=== PATIENT | female | born 1945 | race Caucasian/White ===

== ENCOUNTER 2023-06-20 11:59 | Outpatient (CLI) | payer MEDICARE, SELFPAY ==
--- NOTE | ~2023-06-20 | DEXA_ITS ---
? Bone Density Report? Name:? VIKTOR SNOW Patient ID:??? [id number] Age:? 77 Sex:? Female Ethnicity:? White Date of : 1945 Indication: postmenopausal; screening for osteoporosis; height loss; Referring Provider: Marion, Afshin Miranda Study: Bone densitometry was performed. Exam Date: June 20, 2023 Accession number: [id number] Bone Density: Region? BMD??? T-score? Z-score?? Classification AP Spine(L2, L3, L4)? 1.126??? 0.4?3.1? Normal Femoral Neck (Left)? 0.653?? -1.8? 0.5? Osteopenia Total Hip (Left)? 0.821?? -1.0? 1.0? Normal Femoral Neck (Right)? 0.631?? -2.0? 0.2? Osteopenia Total Hip (Right)? 0.742?? -1.6? 0.3? Osteopenia Femoral Neck Mean? 0.642?? -1.9? 0.3? Osteopenia Total Hip Mean? 0.782?? -1.3? 0.6? Osteopenia World Health Organization criteria for BMD impression classify patients as: Normal (T-score at or above -1.0), Osteopenia (T-score between -1.0 and -2.5), or Osteoporosis (T-score at or below -2.5). 10-year Fracture Risk(1): Major Osteoporotic Fracture? 14% Hip Fracture? 5.9% Reported Risk Factors: [place] (), Neck BMD=0.631, BMI=21.8, smoking (1) FRAX? Version 3.08. Fracture probability calculated for an untreated patient. Fracture probability may be lower if the patient has received treatment. Clinical Information Provided by Patient: Smokes Patient maximum height was 60 Menopause Age: 50 No regular weight bearing exercise Drinks caffeinated beverages Onset of menses at age 12 Number of children 2 Impression: The patient has low bone mass, based on the Right Femoral Neck T- score. The patient has risk factors, including: smoking. Discussion: BONE DENSITY IS LOW AT ONE OR MORE SKELETAL SITES. This patient's lowest T-score is low at one or more skeletal sites.? It meets the World Health Organization's (WHO) criteria for ?low bone mass?? (T-score between -1.0 and -2.5).? The patient's 10-year risk of fracture as calculated by FRAX is less than the threshold where pharmacological therapy is recommended by the National Osteoporosis Foundation (NOF).? However, all treatment decisions require clinical judgment and consideration of individual patient factors, including patient preferences, comorbidities, previous drug use, risk factors not captured in the FRAX model (e.g., frailty, falls, vitamin D deficiency, increased bone turnover, interval significant decline in bone density) and possible under or overestimation of fracture risk by FRAX. The patient should follow a healthful lifestyle (good nutrition with adequate calcium and vitamin D, and appropriate weight-bearing exercise). Follow-Up: Consider repeating this study in 2 to 3 years to reassess this patient's status, or sooner if there is some new clinical indication. Reported by: Dr. Xavier Love on 06/21/2023 2:23:00 PM. LALA
== END 2023-06-20 12:00 | disposition home or self-care (01) ==
LOC: CHSIMG 12:06
PROVIDERS: PCP Physician Assistant; Visit Provider Physician Assistant
DX: Z78.0 Asymptomatic menopausal state (principal); M85.89 Other specified disorders of bone density and structure, multiple sites
CPT/HCPCS: 77080

== ENCOUNTER 2023-10-21 12:15 | Outpatient (CLI) | payer MEDICARE, SELFPAY ==
[2023-10-21 12:39] LABS: Hematocrit 28.7 % (35.0-42.0); Hemoglobin 9.5 g/dL (11.7-13.8); Mean Corpuscular HGB Conc 33.1 g/dL (32-36); Mean Corpuscular Hemoglobin 28.7 pg (27.0-31.0); Mean Corpuscular Volume 86.7 fL (78.0-102.0); Mean Platelet Volume 9.8 fl (9.2-11.8); Platelet Count Result 422 K/mm3 (150-420); Red Blood Count 3.31 M/mm3 (4.20-5.40); Red Cell Distribution Width 15.6 % (11.6-14.4); White Blood Count 12.5 K/mm3 (4.8-10.8)
[2023-10-21 13:22] LABS: Alanine Aminotransferase 19 U/L (14-59); Albumin Level 3.2 g/dL (3.4-5.0); Alkaline Phosphatase 170 U/L (46-116); Amylase 34 U/L (25-115); Aspartate Amino Transferase 17 U/L (15-37); Bilirubin,Total 0.4 mg/dL (0.00-1.00); Blood Urea Nitrogen 20 mg/dL (7-18); CRP 10.2 mg/dL (0.0-0.9); Calcium 8.8 mg/dL (8.5-10.1); Carbon Dioxide 29 mmol/L (21-32); Chloride 98 mmol/L (98-108); Cholesterol 198 mg/dL (0-200); Estimated Glomerular Filt Rate 46; Free T4 Free Thyroxine 1.12 ng/dL (0.76-1.46); Glucose 127 mg/dL (70-99); HDL Direct 31 mg/dL (40-60); LDL Cholesterol Calculated 140 mg/dL (<130); Lipase 34 U/L (16-77); Potassium 4.3 mmol/L (3.5-5.1); Thyroid Stimulating Hormone 0.94 uIU/mL (0.36-3.74); Total Protein 6.7 g/dL (6.4-8.2); Triglycerides 136 mg/dL (0-150)
[2023-10-21 13:33] LABS: Anion Gap 9 mmol/L (4-12); Osmolality Calculated 286 mOsm/kg (285-295); Sodium 136 mmol/L (136-145)
[2023-10-21 13:38] LABS: Erythrocyte Sedimentation Rate 59 mm/hr (0-20)
[2023-10-21 18:56] LABS: Hemoglobin A1C 5.5 % (<5.7)
[2023-10-21 19:21] LABS: Ferritin 135 ng/mL (8-252); Folic Acid 16.7 ng/mL (8.6->20); Iron 10 ug/dL (50-170); Percent Iron Saturation 4 % (12-57); Vitamin B12 1757 pg/mL (193-986)
== END 2023-10-21 12:16 | disposition home or self-care (01) ==
PROVIDERS: PCP Nurse Practitioner Family; Visit Provider Nurse Practitioner Family
DX: R63.4 Abnormal weight loss (principal); N95.0 Postmenopausal bleeding; R10.9 Unspecified abdominal pain; D64.9 Anemia, unspecified; R73.09 Other abnormal glucose; R11.2 Nausea with vomiting, unspecified; R19.7 Diarrhea, unspecified; Z13.6 Encounter for screening for cardiovascular disorders
CPT/HCPCS: 36415; 80053; 80061; 82150; 82607; 82728; 82746; 83036; 83540; 83550; 83690; 84439; 84443; 85027; 85652; 86140

== ENCOUNTER 2023-10-22 09:27 | Outpatient (CLI) | payer MEDICARE, SELFPAY ==
--- NOTE | ~2023-10-22 | CT_ITS ---
EXAMINATION: CT chest abdomen pelvis w con DATE: 10/22/2023 10:03 INDICATION: Abnormal weight loss. TECHNIQUE: Computed tomography (CT) of the chest, abdomen, and pelvis was performed with 100 mL Omnip aque 350 intravenous contrast. Automated exposure control and iterative reconstruction technique were employed. The dose-length product was 242.50 mGy-cm. COMPARISON: None FINDINGS: CHEST CT: There is mild scarring at the lung apices. There is mild emphysema. There is mild radiation fibrosis in anterolateral right lung. There is partial collapse of right middle lobe. There is peripheral sept al thickening in the inferior lungs. There are a few scattered nodules in the lungs measuring up to 6 mm in left lower lobe. There are small pleural effusions. The heart size is normal. There are millard ry artery calcifications. There is a moderate-sized pericardial effusion with pericardial thickening. Calcified right hilar and mediastinal lymph nodes are consistent with old granulomatous disease. The re are suture anchors in right humeral head. There is mild thoracic spondylosis. ABDOMEN/PELVIS CT: The liver is normal. There are gallstones in the gallbladder, which is normal in size. The spleen, pa ncreas, and adrenal glands are normal. There is cortical thinning in the kidneys. There is a [address] in right kidney. There is calcified atherosclerosis of the aorta and many of the other arteries. T here is a 4.8 cm mass in the uterus centered at the endometrial complex. There is diverticulosis of t he colon without evidence of diverticulitis. There are no dilated loops of bowel. The appendix is nor mal. There is aortocaval, left para-aortic, right common iliac, bilateral external iliac, and perirec shira lymphadenopathy. There is a 10 mm mass at the surface of the bladder. There is severe lumbar spon dylosis. IMPRESSION: 1. 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 2. Retroperitoneal and pelvic lymphadenopathy, consistent with metastatic disease. 3. 10 mm serosal mass of the bladder suspicious for metastatic disease. 4. Small pleural effusions. 5. Moderate-sized pericardial effusion with pericardial thickening, likely an exudate. 6. Pulmonary nodules measuring up to 6 mm, which may be granulomatous disease or metastatic disease. Reviewed, dictated and finalized at location A. IMPRESSION: 1. 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 2. Retroperitoneal and pelvic lymphadenopathy, consistent with metastatic disea se. 3. 10 mm serosal mass of the bladder suspicious for metastatic disease. 4. Small pleural effusions. 5. Moderate-sized pericardial effusion with pericardial thickening, likely an e xudate. 6. Pulmonary nodules measuring up to 6 mm, which may be granulomatous disease o r metastatic disease.
[2023-10-22 09:40] LABS: Add Urine Microscopic? YES; Appearance Urine Clear (Clear); Bilirubin Urine Negative (Negative); Blood Urine Negative (Negative); Color Urine Yellow (Yellow); Glucose Urine UA Negative (Negative); Ketones Urine Negative (Negative); Leukocyte Esterase Ur 1+ (Negative); Nitrate Urine Positive (Negative); Protein Urine Trace (Negative); Urobilinogen Urine 0.2 mg/dL (0.2-1.0)
[2023-10-22 09:45] LABS: Bacteria Urine 4+ /hpf; RBC Urine None seen /hpf (0-2); Squamous Epithelial Cell Urine Rare /hpf (Few)
== END 2023-10-22 09:28 | disposition home or self-care (01) ==
LOC: CHSIMG 09:30
PROVIDERS: PCP Internal Medicine; Visit Provider Nurse Practitioner Family
DX: R63.4 Abnormal weight loss (principal); N95.0 Postmenopausal bleeding; R11.2 Nausea with vomiting, unspecified; R19.7 Diarrhea, unspecified; R10.9 Unspecified abdominal pain; Z87.891 Personal history of nicotine dependence; N85.8 Other specified noninflammatory disorders of uterus; R59.0 Localized enlarged lymph nodes; N32.89 Other specified disorders of bladder; J90 Pleural effusion, not elsewhere classified; I31.39 Other pericardial effusion (noninflammatory); R91.8 Other nonspecific abnormal finding of lung field
CPT/HCPCS: 71260; 74177; 81001; 87077; 87086; 87088; 87186; Q9967

== ENCOUNTER 2023-12-05 10:03 | Outpatient (CLI) | payer MEDICARE, SELFPAY ==
[2023-12-05 16:23] LABS: Appearance Urine Cloudy (Clear); Blood Urine 3+ (Negative); Glucose Urine UA Negative (Negative); Ketones Urine Negative (Negative); Protein Urine 2+ (Negative); Specific Grav Ur 1.015 (1.010-1.020); pH Urine 6.5 (5.0-8.0)
[2023-12-05 16:24] LABS: Add Urine Microscopic? YES; Bilirubin Urine Negative (Negative); Leukocyte Esterase Ur 1+ (Negative); Nitrate Urine Negative (Negative); Urobilinogen Urine 0.2 mg/dL (0.2-1.0)
[2023-12-05 16:28] LABS: Bacteria Urine 3+ /hpf; Color Urine Light Red (Yellow); RBC Urine >75 /hpf (0-2); Squamous Epithelial Cell Urine None Seen /hpf (Few)
== END 2023-12-05 10:04 | disposition home or self-care (01) ==
LOC: CHSLAB 10:18
PROVIDERS: PCP Internal Medicine
DX: C54.1 Malignant neoplasm of endometrium (principal); R30.9 Painful micturition, unspecified; R82.90 Unspecified abnormal findings in urine
CPT/HCPCS: 81001; 87077; 87086; 87088; 87181

== ENCOUNTER 2023-12-13 12:45 | Outpatient (CLI) | payer MEDICARE, SELFPAY ==
[2023-12-13 13:10] LABS: Basophils Absolute Auto 0.03 K/mm3 (0.00-0.10); Basophils Percent Auto 0.2 % (0.0-1.0); Hematocrit 28.5 % (35.0-42.0); Hemoglobin 9.4 g/dL (11.7-13.8); Immature Granulocyte Absolute 0.15 K/mm3 (0.00-0.00); Lymphocytes Absolute Auto 1.16 K/mm3 (1.10-4.50); Lymphocytes Percent Auto 7.8 % (18.0-42.0); Mean Corpuscular Hemoglobin 27.8 pg (27.0-31.0); Mean Corpuscular Volume 84.3 fL (78.0-102.0); Mean Platelet Volume 9.1 fl (9.2-11.8); Monocytes Absolute Auto 0.56 K/mm3 (0.10-0.90); Monocytes Percent Auto 3.8 % (2.0-11.0); Neutrophils Absolute Auto 13.02 K/mm3 (1.70-7.20); Neutrophils Percent Auto 87.2 % (50.0-70.0); Platelet Count Result 700 K/mm3 (150-420); Red Blood Count 3.38 M/mm3 (4.20-5.40); Red Cell Distribution Width 21.6 % (11.6-14.4); White Blood Count 14.9 K/mm3 (4.8-10.8)
[2023-12-13 13:32] LABS: Alanine Aminotransferase 13 U/L (14-59); Albumin Level 2.6 g/dL (3.4-5.0); Alkaline Phosphatase 158 U/L (46-116); Anion Gap 6 mmol/L (4-12); Aspartate Amino Transferase 43 U/L (15-37); Bilirubin,Total 0.4 mg/dL (0.00-1.00); Blood Urea Nitrogen 22 mg/dL (7-18); Calcium 9.9 mg/dL (8.5-10.1); Carbon Dioxide 30 mmol/L (21-32); Chloride 97 mmol/L (98-108); Estimated Glomerular Filt Rate 28; Glucose 94 mg/dL (70-99); Magnesium 2.4 mg/dL (1.8-2.4); Osmolality Calculated 279 mOsm/kg (285-295); Sodium 133 mmol/L (136-145); Total Protein 5.9 g/dL (6.4-8.2)
[2023-12-13 13:33] LABS: Prothrombin Time 11.2 Seconds (9.50-12.1)
[2023-12-14 11:42] LABS: CA-125 275 U/mL (<35)
== END 2023-12-13 12:46 | disposition home or self-care (01) ==
LOC: CHSLAB 12:53
PROVIDERS: PCP Internal Medicine
DX: C54.1 Malignant neoplasm of endometrium (principal); Z45.2 Encounter for adjustment and management of vascular access device; N95.0 Postmenopausal bleeding; R10.9 Unspecified abdominal pain
CPT/HCPCS: 36415; 80053; 83735; 85025; 85055; 85610; 86304